=== PATIENT | male | born 1955 | race Caucasian/White ===

== ENCOUNTER 2019-12-13 10:03 | Day surgery (SDC) | payer BC ==
[~2019-12-13] VITALS: Ht 182.9 cm; Wt 121.4 kg
[2019-12-13] MEDS ORDERED: SODIUM CHLORIDE 0.9% 1,000 ML IV SCH (10:15)
[2019-12-13 10:17] VITALS: BP 146/71
[2019-12-13] MEDS ORDERED: Vitamin D PO (10:27)
[2019-12-13] MEDS ORDERED: METF500T17 PO (10:27)
[2019-12-13] MEDS ORDERED: METO-93 PO (10:27)
[2019-12-13] MEDS ORDERED: ATOR20TA37 PO (10:27)
[2019-12-13] MEDS ORDERED: ALBU18HF INH (10:27)
[2019-12-13] MEDS ORDERED: LOSA25TA25 PO (10:27)
[2019-12-13] MEDS ORDERED: MECL-101 PO (10:27)
[2019-12-13] MEDS ORDERED: GLIM4TAB8 PO (10:27)
[2019-12-13] MEDS ORDERED: DAPA10TA PO (10:27)
[2019-12-13] MEDS ORDERED: PLEASE ENTER HEIGHT AND WEIGHT MC SCH (10:30)
[2019-12-13 11:15] LABS: BASOPHILS # (AUTO) 0.03 x10^3/uL (0-0.1); BASOPHILS % (AUTO) 0 % (0-1); EOSINOPHILS # (AUTO) 0.28 x10^3/uL (0-0.4); EOSINOPHILS % (AUTO) 3 % (1-7); LYMPHOCYTES # (AUTO) 3.11 x10^3/uL (1-3.4); LYMPHOCYTES % (AUTO) 33 % (22-44); MD NO; MEAN CORPUSCULAR HEMOGLOBIN 31.9 pg (27.5-34.5); MEAN CORPUSCULAR HGB CONC 33.2 g/dL (33.2-36.2); MEAN PLATELET VOLUME 7.6 fL (7.4-10.4); MONOCYTES # (AUTO) 0.82 x10^3/uL (0.2-0.8); MONOCYTES % (AUTO) 9 % (2-9); NEUTROPHILS % (AUTO) 56 % (42-75); PLATELET COUNT 233 x10^3/uL (130-400); RED BLOOD COUNT 5.34 x10^6/uL (4.38-5.82); RED CELL DISTRIBUTION WIDTH 13.6 % (9.4-14.8)
[2019-12-13 11:21] LABS: INTERNATIONAL NORMALIZED RATIO 0.99 (0.93-1.1); PROTHROMBIN TIME 10.2 Seconds (9.6-11.5)
[2019-12-13 11:25] LABS: CHLORIDE 110 mmol/L (98-107)
[2019-12-13 11:31] LABS: CALCIUM 9.4 mg/dL (8.5-10.1)
[2019-12-13 11:37] LABS: ANION GAP 9 mmol/L (5-15)
[2019-12-13] MEDS ORDERED: LIDOCAINE 1%, 20ML ONE (13:40)
[2019-12-13] MEDS ORDERED: MIDAZOLAM 1 MG/ML, 2ML ONE (13:51)
[2019-12-13] MEDS ORDERED: FENTANYL PF 250 MCG/5ML ONE (13:51)
[2019-12-13] MEDS ORDERED: ISOPROTERENOL 0.2MG/ML, 5ML ONE (14:17)
[2019-12-13] MEDS ORDERED: PROPOFOL 10 MG/ML, 20ML ONE (14:29)
[2019-12-13] MEDS ORDERED: SUCCINYLCHOLINE 20 MG/ML, 10ML ONE (14:29)
[2019-12-13] MEDS ORDERED: LIDOCAINE-MPF 2% ,5ML ONE (14:29)
[2019-12-13] MEDS ORDERED: ONDANSETRON 2MG/ML, 2ML ONE (14:29)
[2019-12-13] MEDS ORDERED: ROCURONIUM 10 MG/ML,10ML ONE (14:29)
[2019-12-13] MEDS ORDERED: DEXAMETHASONE 4 MG/ML, 1ML ONE (14:29)
[2019-12-13] MEDS ORDERED: ACETAMINOPHEN 325 MG TABLET PO PRN (14:30)
[2019-12-13] MEDS ORDERED: PROMETHAZINE 25 MG/ML, 1ML IVPush PRN (14:30)
[2019-12-13] MEDS ORDERED: HYDROmorphone 1 MG/ML, 1ML INJ IVPush PRN (14:30)
[2019-12-13] MEDS ORDERED: OXYcodone 5 MG/5 ML ORAL.SOL UDC PO PRN (14:30)
[2019-12-13] MEDS ORDERED: FENTANYL PF 100 MCG/2ML IV PRN (14:30)
[2019-12-13] MEDS ORDERED: EPHEDRINE 50 MG/ML, 1ML IVPush PRN (14:30)
[2019-12-13] MEDS ORDERED: hydrALAzine 20 MG/ML, 1ML IV PRN (14:30)
[2019-12-13] MEDS ORDERED: MEPERIDINE/PF 25MG/0.5ML IVPush PRN (14:30)
[2019-12-13] MEDS ORDERED: ONDANSETRON 2MG/ML, 2ML IVPush PRN (14:30)
[2019-12-13] MEDS ORDERED: LABETALOL 5MG/ML, 20ML IV PRN (14:30)
[2019-12-13] MEDS ORDERED: SUGAMMADEX 200 MG/2 ML IVPush ONE (14:33)
[2019-12-13] MEDS ORDERED: FLEC50TA25 PO (15:07)
== END 2019-12-13 16:44 | disposition home or self-care (01) ==
LOC: CACL 10:03
PROVIDERS: ATTEND Internal Medicine Clinical Cardiac Electrophysiology
DX: I49.3 Ventricular premature depolarization (principal); Z20.828 Contact with and (suspected) exposure to other viral communicable diseases; I47.2 Ventricular tachycardia; E11.9 Type 2 diabetes mellitus without complications; E78.5 Hyperlipidemia, unspecified; G47.33 Obstructive sleep apnea (adult) (pediatric); Z79.84 Long term (current) use of oral hypoglycemic drugs; Z79.899 Other long term (current) drug therapy
CPT/HCPCS: 36415; 71046; 80048; 85025; 85610; 87635; 93654; J0330; J1100; J2250; J2405; J2704; J3010; 93623

== ENCOUNTER 2020-02-11 06:00 | Observation (INO) | payer BC ==
[~2020-02-11] VITALS: Ht 182.9 cm; Wt 121.8 kg
[~2020-02-11 06:00] MED LIST: ALBU18HF INH; ATOR20TA37 PO; DAPA10TA PO; FLEC50TA25 PO; GLIM4TAB8 PO; LOSA25TA25 PO; MECL-101 PO; METF500T17 PO; METO-93 PO; Vitamin D PO
[2020-02-11 06:22] VITALS: BP 134/81
[2020-02-11] MEDS ORDERED: SODIUM CHLORIDE 0.9% 1,000 ML IV SCH (06:30)
[2020-02-11] MEDS ORDERED: FLEC50TA25 PO (06:31)
[2020-02-11] MEDS ORDERED: VITAMIN PACK PO (06:31)
[2020-02-11] MEDS ORDERED: LIDOCAINE 1%, 20ML ONE (07:20)
[2020-02-11] MEDS ORDERED: ADENOSINE 6 MG/2 ML ONE (07:20)
[2020-02-11] MEDS ORDERED: FENTANYL PF 100 MCG/2ML ONE (07:20)
[2020-02-11] MEDS ORDERED: ISOPROTERENOL 0.2MG/ML, 5ML ONE (07:20)
[2020-02-11] MEDS ORDERED: MIDAZOLAM 1 MG/ML, 2ML ONE (07:21)
[2020-02-11 07:26] LABS: BASOPHILS % (AUTO) 1 % (0-1); EOSINOPHILS % (AUTO) 3 % (1-7); LYMPHOCYTES % (AUTO) 37 % (22-44); MEAN CORPUSCULAR HEMOGLOBIN 32.5 pg (27.5-34.5); MEAN PLATELET VOLUME 8.4 fL (7.4-10.4); MONOCYTES % (AUTO) 11 % (2-9); NEUTROPHILS % (AUTO) 49 % (42-75); PLATELET COUNT 240 x10^3/uL (130-400); RED BLOOD COUNT 5.26 x10^6/uL (4.38-5.82)
[2020-02-11 07:36] LABS: INTERNATIONAL NORMALIZED RATIO 1.07 (0.93-1.1); PROTHROMBIN TIME 11.3 Seconds (9.6-11.5)
[2020-02-11 07:37] LABS: ANION GAP 12 mmol/L (5-15); CHLORIDE 108 mmol/L (98-107); MD NO
[2020-02-11 07:38] LABS: CREATININE 0.93 mg/dL (0.7-1.3)
[2020-02-11] MEDS ORDERED: HEPARIN 1,000 UNITS/ML, 10ML ONE ×2 (08:46→10:30)
[2020-02-11] MEDS ORDERED: MIDAZOLAM 1 MG/ML, 5ML ONE (10:09)
[2020-02-11] MEDS ORDERED: FENTANYL PF 250 MCG/5ML ONE (10:10)
[2020-02-11] MEDS ORDERED: ACETAMINOPHEN 325 MG TABLET PO PRN (12:00)
[2020-02-11] MEDS ORDERED: ONDANSETRON 2MG/ML, 2ML IVPush PRN (12:00)
[2020-02-11] MEDS ORDERED: ZOLPIDEM 5MG TABLET PO PRN (12:00)
[2020-02-11 13:34] VITALS: BP 127/78
[2020-02-11] MEDS ORDERED: APIXABAN 5 MG TABLET ONE (17:22)
[2020-02-11 18:37] VITALS: BP 133/65
[2020-02-11] MEDS: CLOPIDOGREL 75 MG TABLET PO SCH (21:47)
[2020-02-12 00:59] VITALS: BP 115/68
[2020-02-12 07:24] VITALS: BP_SYST 105; BP_SYST 95; BP_DIAS 57
[2020-02-12] MEDS ORDERED: ACET325T26 PO (08:05)
[2020-02-12] MEDS ORDERED: CLOP75TA PO (08:05)
[2020-02-12] MEDS: CLOPIDOGREL 75 MG TABLET PO SCH (08:25)
[2020-02-12 08:32] VITALS: BP 124/80
== END 2020-02-12 10:15 | disposition home or self-care (01) ==
LOC: CACL 06:00 → ORIP 11:49 → 5SO 13:27 → DCLOUNGE 02-12 10:08
PROVIDERS: ADMIT Internal Medicine Clinical Cardiac Electrophysiology; ATTEND Internal Medicine Clinical Cardiac Electrophysiology
DX: I49.3 Ventricular premature depolarization (principal); I47.2 Ventricular tachycardia; E11.9 Type 2 diabetes mellitus without complications; Z79.899 Other long term (current) drug therapy
CPT/HCPCS: 36415; 80048; 85025; 85347; 85610; 93005; 93454; 93623; 93654; 93662; 99156; 99157; C1732; C1759; C1760; C1894; G0378; J1644; J2250; J3010; J3490; Q9967; J0153